=== PATIENT | female | born 1955 | race Caucasian/White ===

== ENCOUNTER 2018-12-02 07:25 | Outpatient (CLI) | payer OTHER | END 2018-12-02 07:36 | disposition home or self-care (01) | LOC: TOM 07:25 | DX: R19.5 Other fecal abnormalities (principal); K63.5 Polyp of colon ==

== ENCOUNTER 2025-02-28 06:51 | Day surgery (SDC) | payer OTHER ==
[2025-02-20 09:06] VITALS: BP 160/70
[2025-02-20 09:28] LABS: URINE APPEARANCE Clear; URINE BILIRRUBIN Negative (NEGATIVE); URINE BLOOD Negative; URINE COLOR Yellow; URINE GLUCOSE Negative (NEGATIVE); URINE KETONE Negative (NEGATIVE); URINE LEUKOCYTE Negative; URINE NITRATE Negative; URINE PROTEIN Negative (NEGATIVE); URINE UROBILINOGEN 0.2 E.U./dl
[2025-02-20 09:31] LABS: BASO % 0.6 % (0.1-1.2); EOS % 1.6 % (0.7-7.0); HEMATOCRIT 37.8 % (34.1-44.9); HEMOGLOBIN 12.3 g/dL (11.2-15.7); LYMPH # 1.96 (1.18-3.74); LYMPH % 30.9 % (19.3-53.1); MEAN CORPUSCULAR HEMOGLOBIN 27.3 pg (25.6-32.2); MONO # 0.74 (0.24-0.82); MONO % 11.7 % (4.7-12.5); NEUT # 3.49 (1.56-6.13); NEUT % 54.9 % (34.0-71.1); PLATELET COUNT 309 K/uL (163-369); RED BLOOD COUNT 4.51 M/uL (3.93-5.22); RED CELL DISTRIBUTION WIDTH 13.2 % (11.6-14.4); URINE BACTERIA 8.5 uL (0.0-1933); URINE WBC 7.5 uL (0.0-23.2)
[2025-02-20 10:14] LABS: INR 1.02; PARTIAL THROMBOPLASTIN TIME 26.8 SECONDS (22.0-34.0); PROTHROMBIN TIME 11.1 SECONDS (9.0-11.5)
[2025-02-20 10:29] LABS: URINE CAST 0.14 uL (0.0-1.40); URINE EPITHELIAL CELLS 0.9 uL (0.0-38.8); URINE RBC 0.8 uL (0.0-20.8)
[2025-02-20 10:30] LABS: ALBUMIN 3.6 gm/dL (3.4-5.0); BILIRUBIN TOTAL 0.31 mg/dL (0.3-1.2); CREATININE SERUM 0.82 mg/dL (0.55-1.02); GFR 69.32; GLOBULINA 3.6 G/DL (2.4-3.5); POTASSIUM 3.76 mEq/L (3.5-5.1); TOTAL PROTEIN 7.2 gm/dL (6.4-8.2)
[~2025-02-28] VITALS: Ht 167.6 cm; Wt 60.8 kg
[~2025-02-28 06:51] MED LIST: CARDURA1 MG PO; LOSARTAN-HCTZ1 EAC2 PO; LYRICA200 MG PO; MILLIPRED5 MG PO; NORVASC5 MG PO; PEPCID AC20 MG PO; PRILOSEC OTC20 MG PO; ZANAFLEX2 M1 PO; ZETIA10 MG PO
[2025-02-28] MEDS ORDERED: CEFAZOLIN SODIUM 1,000 MG VIAL ONE ×2 (09:53→15:10)
[2025-02-28] MEDS ORDERED: LIDOCAINE HCL 1% 20 ML VIAL IJ ONE (13:28)
[2025-02-28] MEDS ORDERED: CEFAZOLIN SODIUM 1,000 MG VIAL IV SCH (14:30)
[2025-02-28] MEDS ORDERED: FAMOTIDINE/PF 20 MG/10 ML SYRINGE IV SCH (14:30)
[2025-02-28] MEDS ORDERED: FAMOTIDINE/PF 20 MG/2 ML VIAL ONE (15:11)
== END 2025-02-28 16:30 | disposition home or self-care (01) ==
LOC: CIR.AMB 06:51
PROVIDERS: ATTEND Specialist
DX: D17.1 Benign lipomatous neoplasm of skin and subcutaneous tissue of trunk (principal); Z91.041 Radiographic dye allergy status